=== PATIENT | female | born 1990 | race Caucasian/White ===

== ENCOUNTER → 2023-12-27 | Outpatient (CLI) | payer BC ==
[~2023-12-27] MED LIST: Gadoterate 20 ML VIAL IV ONE; LORYNA 3 MG-0.01 TAB PO; SINGULAIR 110 MG/TAB PO; ZYRTEC 10MG10 MG PO
== END ==
LOC: COL.RAD 06:55
DX: G43.109 Migraine with aura, not intractable, without status migrainosus (principal); G44.84 Primary exertional headache
CPT/HCPCS: A9575